=== PATIENT | female | born 1930 | race Caucasian/White ===

== ENCOUNTER 2018-05-27 11:06 | Inpatient (IN) | payer OTHER ==
[~2018-05-27] VITALS: Ht 157.5 cm; Wt 58.1 kg
[2018-05-27 11:17] VITALS: BP_SYST 166
--- NOTE | 2018-05-27 11:17 | NUR ---
Patient to ER bed 01 to gown for evaluation. Side rails up.
--- NOTE | 2018-05-27 11:20 | NUR ---
ER at bedside examining patient.
--- NOTE | 2018-05-27 11:20 | NUR ---
patient arrived AOx4 with c/o SOB since last week. 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 patients lung reza has upper respiratory wheezing bilaterally. patient is currently saturating at 92% on room air. patient denies any recent sickness. patient states she also has blood in urine with urgency and hesitation since last night. no other complaint or injury at this time.
[2018-05-27 12:30] LABS: ANION GAP 8 (5-15); CHLORIDE 102 mmol/L (98-107); CREATININE 0.99 mg/dL (0.55-1.30); GLUCOSE 95 mg/dL (70-99); POTASSIUM 3.8 mmol/L (3.5-5.1); SODIUM SERUM 138 mmol/L (136-145); UREA NITROGEN, BLOOD 28 mg/dL (8-21)
[2018-05-27 12:31] LABS: HEMOGLOBIN 17.4 g/dL (12.0-16.0); LYMPHOCYTES % (AUTO) 11.8 % (20.5-51.5); MEAN CORPUSCULAR HEMOGLOBIN 33 pg (27-31); MEAN CORPUSCULAR HGB CONC 33 % (32-36); MEAN CORPUSCULAR VOLUME 100 fL (79.0-98.0); PLATELET COUNT (AUTO) 142 K/uL (130-430); RED CELL DISTRIBUTION WIDTH 13.8 % (9.0-15.0); WHITE BLOOD COUNT (AUTO) 9.5 K/uL (4.8-10.8)
[2018-05-27 12:32] LABS: BASOPHILS % (AUTO) 0.4 % (0.0-2.0); EOSINOPHILS % (AUTO) 0.4 % (0.0-4.0); LYMPHOCYTES # (AUTO) 1.1 K/uL (1.0-5.5); MONOCYTES # (AUTO) 0.6 K/uL (0.0-1.0); MONOCYTES % (AUTO) 6.4 % (1.7-9.3); NEUTROPHILS # (AUTO) 7.7 K/uL (1.8-7.7)
[2018-05-27 12:33] LABS: INR 1.9 (0.8-1.2); PROTHROMBIN TIME 18.9 SECS (9.5-12.5)
[2018-05-27 12:36] LABS: ALANINE AMINOTRANSFERASE 45 U/L (12-78); ALBUMIN 3.8 g/dL (3.4-4.8); ASPARTATE AMINOTRANSFERASE 32 U/L (10-37)
[2018-05-27] MEDS ORDERED: TELM40TA PO (14:23)
[2018-05-27] MEDS ORDERED: CARV25TA55 PO (14:23)
[2018-05-27] MEDS ORDERED: HCT25 PO (14:23)
[2018-05-27] MEDS ORDERED: ANAS1TAB PO (14:23)
[2018-05-27] MEDS ORDERED: RIVA20TA PO (14:23)
[2018-05-27 15:02] LABS: BILIRUBIN,URINE NEGATIVE (NEGATIVE); BLOOD, URINE 3+ (NEGATIVE); CLARITY/URINE CLEAR (CLEAR); COLOR,URINE YELLOW (YELLOW); GLUCOSE,URINE NEGATIVE (NEGATIVE); KETONES,URINE NEGATIVE (NEGATIVE); LEUKOCYTE ESTERASE ,URINE 3+ (NEGATIVE); NITRITE, URINE NEGATIVE (NEGATIVE); PH,URINE 5.5 (5.0-8.0); PROTEIN URINE TRACE (NEGATIVE); UROBILINOGEN,URINE 0.2 (0.2-1.0)
[2018-05-27 15:08] LABS: BACTERIA,URINE FEW /HPF (None Seen); RBC,URINE 20-50 /HPF (0-3); WBC,URINE 20-50 /HPF (0-3)
[2018-05-27 15:09] LABS: MUCUS,URINE 1+ /LPF (None Seen)
--- NOTE | 2018-05-27 15:24 | NUR ---
ADMISSION NOTE Received patient from ER via chad, received report from ANGELIA JARRETT. Patient admitted with diagnosis of CHF. Patient oriented to hospital routine, call light, toileting and safety-patient verbalized understanding.
--- NOTE | 2018-05-27 15:30 | NUR ---
initial notes rec patient from er with a dx of chf.awake laert with hard of hearing on the right. hob slightly elevated and with ivl on the r ac intact. no infiltration noted. oriented re call light and communication board. bed to the lowest position and side rails up and locked. pt is close to the nurses station.
--- NOTE | 2018-05-27 15:35 | NUR ---
Patient will be admitted to care of MD Micaela. Admitted to Telemetry unit. Will go to room 121-b. Belongings list completed. Summary report printed. Report will be given at bedside.
[2018-05-27 15:45] VITALS: BP_SYST 155
[2018-05-27 16:00] VITALS: BP_SYST 155
[2018-05-27] MEDS ORDERED: FUROSEMIDE 20 MG/2 ML VIAL IVP ONE (16:30)
[2018-05-27] MEDS ORDERED: ALBUTEROL SULFATE 0.083% 2.5 MG/3 ML VIAL.NEB INH PRN (16:30)
--- NOTE | 2018-05-27 16:40 | NUR ---
PULMONOLOGY CONSULT PLEURAL EFFUSION DR CASTILLO [phone] DR NATH FLOW TRADER [facility]
--- NOTE | 2018-05-27 18:31 | NUR ---
closing notes pt was cleaned and kept her dry and clean. turned repositioned for comfort. stable, no chest pain noted or sob noted.
[2018-05-27] MEDS: cefTRIAXone 1 GM in D5W 50 ML IV SCH (19:00)
--- NOTE | 2018-05-27 19:02 | NUR ---
Paged Dr. Mora dialed [phone], s/w Gemma
--- NOTE | 2018-05-27 19:20 | NUR ---
Dr. Abby Mora called back and requested for an order for CT chest without contrast per family request and Dr. Burgess's recommendation.
--- NOTE | 2018-05-27 19:35 | NUR ---
Initial Note Received patient awake, alert and oriented with family at the bedside. No SOB noted. Room air. Denies any pain or n/v at this time. Saline lock flushed. Skin intact and no peripheral edema noted. Repositions herself. Made patient aware that we need another urine specimen for culture. Needs attended. Call light within reach. Care and monitoring will be provided per protocol. Bed alarm on and at lowest position at all times. Kept warm and comfortable. Controlled afib with paced beats on a monitor.
[2018-05-27] MEDS: ALBUTEROL SULFATE 0.083% 2.5 MG/3 ML VIAL.NEB INH SCH ×2 (19:51→23:20)
[2018-05-27 20:00] VITALS: BP_SYST 159
[2018-05-27] MEDS: CARVEDILOL 25 MG TABLET (COREG) PO SCH (20:45)
--- NOTE | 2018-05-27 20:45 | NUR ---
RN Note Due meds given, tolerated well. Hearing aid x1 placed on a denture cup with patient's name. Bedpan given as requested. Kept clean and dry.
[2018-05-27] MEDS: RIVAROXABAN 20 MG TABLET PO SCH (20:52)
[2018-05-27] MEDS ORDERED: RIVAROXABAN 10 MG TABLET ONE (20:57)
--- NOTE | 2018-05-27 23:30 | NUR ---
RN Note On HHN. Given bedpan as requested. Repositions herself. Kept clean, dry and comfortable. No other complaints.
--- NOTE | 2018-05-27 23:48 | NUR ---
Consultation Paged Reason for Consultation: Congestive Heart Failure Was consult called: Y Person who was notified: Truck Body Repairer 22 Consulting Physician: Francois Romano Hot Dip Galvanizer Ordering Physician: Dr. Hniojosa
[2018-05-28] VITALS (7 sets, daily range): BP systolic 148–179
--- NOTE | 2018-05-28 01:00 | NUR ---
RN Note Sleeping at this time. No SOB or grimacing noted.
--- NOTE | 2018-05-28 02:00 | NUR ---
RN Note Awake, given bedpan and extra blanket as requested. Kept clean and dry. No complaints at this time.
[2018-05-28] MEDS: ALBUTEROL SULFATE 0.083% 2.5 MG/3 ML VIAL.NEB INH SCH ×6 (03:00→22:29)
--- NOTE | 2018-05-28 04:00 | NUR ---
RN Note Asleep, moves/turn by herself. No distress noted.
--- NOTE | 2018-05-28 06:28 | NUR ---
End Note Afebrile. VS stable. Last BP was 157/68, HR was 85. Denies any pain or n/v throughout the night. Coughs occasionally. Room air. No BM with me. Uses bedpan and has good urine output. Refused IV antibiotic last night. For 2D Echo, CXR, CT Chest and labs today. Needs attended. Call light within reach. Care and monitoring provided per protocol. Repositions herself. Kept warm and comfortable. A fib paced on monitor.
--- NOTE | 2018-05-28 06:46 | NUR ---
Nutrition Update Steve Scale 18 noted. Pt admitted for CHF Diet: 2gm Na diet BMI: 23.5 kg/m2 RD to follow per nutrition care standards.
[2018-05-28 07:21] LABS: HEMATOCRIT 48.8 % (36-48); HEMOGLOBIN 16.4 g/dL (12.0-16.0); MEAN CORPUSCULAR HEMOGLOBIN 34 pg (27-31); MEAN CORPUSCULAR HGB CONC 34 % (32-36); MEAN CORPUSCULAR VOLUME 100 fL (79.0-98.0); PLATELET COUNT (AUTO) 125 K/uL (130-430); RED BLOOD CELL COUNT(AUTO) 4.89 MIL/uL (4.2-6.2); RED CELL DISTRIBUTION WIDTH 13.8 % (9.0-15.0); WHITE BLOOD COUNT (AUTO) 8.4 K/uL (4.8-10.8)
[2018-05-28 07:41] LABS: BASOPHILS % (AUTO) 0.6 % (0.0-2.0); EOSINOPHILS # (AUTO) 0.1 K/uL (0.0-0.4); EOSINOPHILS % (AUTO) 1.5 % (0.0-4.0); LYMPHOCYTES # (AUTO) 1.7 K/uL (1.0-5.5); LYMPHOCYTES % (AUTO) 20.1 % (20.5-51.5); MONOCYTES # (AUTO) 0.8 K/uL (0.0-1.0); NEUTROPHILS # (AUTO) 5.8 K/uL (1.8-7.7); NEUTROPHILS % (AUTO) 68.8 % (40.0-70.0)
--- NOTE | 2018-05-28 08:00 | NUR ---
Note Pt sitting up in bed eating her breakfast. No SOB/resp distress or pain/discomfort was noted at this. Tele unit intact and attached at this time. IV in right AC intact and patent at this time. No needs noted. Call light within reach.
[2018-05-28 08:02] LABS: ANION GAP 12 (5-15); CALCIUM 8.5 mg/dL (8.4-11.0); CHLORIDE 102 mmol/L (98-107); CREATININE 0.99 mg/dL (0.55-1.30); GLUCOSE 99 mg/dL (70-99); POTASSIUM 3.1 mmol/L (3.5-5.1); SODIUM SERUM 139 mmol/L (136-145); UREA NITROGEN, BLOOD 27 mg/dL (8-21)
[2018-05-28] MEDS: LOSARTAN POTASSIUM 50 MG TABLET (COZAAR) PO SCH (08:13)
[2018-05-28] MEDS: CARVEDILOL 25 MG TABLET (COREG) PO SCH ×2 (08:13→20:52)
[2018-05-28] MEDS: FUROSEMIDE 20 MG/2 ML VIAL IVP SCH ×2 (08:14→20:53)
[2018-05-28] MEDS ORDERED: TELMISARTAN 40 MG PO SCH (09:00)
--- NOTE | 2018-05-28 10:00 | NUR ---
Note Dr Hinojosa at bedside doing assessment and answering questions/concerns at this time. Pt's son at bedside visiting at this time as well. Call light within reach.
[2018-05-28] MEDS ORDERED: POTASSIUM CHLORIDE 20 MEQ TAB.PRT.SR PO ONE (13:00)
--- NOTE | 2018-05-28 13:00 | NUR ---
Note Dr Lara and CLINICAL RADIOLOGIST at bedside assessing pt cardiac-[place] and answering questions/concerns at this time. Pt stable and has been assisted to restroom many times. Pt's daughter at bedside at this time visiting and assisting pt in her needs and care. Call light within reach.
--- NOTE | 2018-05-28 16:00 | NUR ---
Note Pt resting in bed. No needs noted at this time. Call light within reach.
[2018-05-28] MEDS: cefTRIAXone 1 GM in D5W 50 ML IV SCH (17:51)
[2018-05-28] MEDS: RIVAROXABAN 20 MG TABLET PO SCH (17:52)
--- NOTE | 2018-05-28 18:30 | NUR ---
Note Pt sitting up in bed eating her dinner. No SOB/resp distress or pain/discomfort noted at this time. Pt was checked on q1 and PRN all shift for needs and care. IV in right hand intact and patent. Pt's tele unit intact and attached at this time. No needs noted. Call light within reach.
--- NOTE | 2018-05-28 19:00 | NUR ---
change of shift.pt.presents stable status.pt.presents general status stable.respiratory status stable.@room air. pt.presents iv access;lock.call light/telephone w/in th reach of the pt.
--- NOTE | 2018-05-28 20:00 | NUR ---
pt.assessed.v/s assessed;values w/in normal limits.pt.presents sign alert;do not utilizes left arm;b/p;labs.pt.presents hx breast cancer. i have apprised the pt.that snacks/beverages are available w/in the shift;no requested@this hour.i have assisted the pt.to the restroom.i have assisted the pt's return to bed.;ambar has transferred the pt.to rm;113.via wheel chair.pt's belongings accounted for;hearing aidx1,glasses.call light/telephone placed w/inn the reach of the pt.
--- NOTE | 2018-05-28 20:30 | NUR ---
i have assisted the pt.to the restroom.i have assisted the pt's return to bed.no additional; requests@this hour.
--- NOTE | 2018-05-28 21:00 | NUR ---
2100p medications administered.i have reiterated to the pt,.that i am to administered lasix.diuretic;20mg ivp. the medication will induce urination process.pt.has understood.that he will present the need to mictrate.
--- NOTE | 2018-05-28 22:00 | NUR ---
pt.assessed.pt.presents quiescent affect;calm,somnolent,.general status stable.respiratory status stable. call light/telephone w/in the reach of the pt.
--- NOTE | 2018-05-29 | NUR ---
pt.assessed.v/s assessed;values w/in normal limits.pt.presents no c/o pain,nausea.no requests presented @this hour.pt.capable to reposition self.general status stable.respiratory status stable;unlabored.02-sat%=94%@room air.call light/telephone w/in the reach of the pt.
[2018-05-29 00:13] VITALS: BP_SYST 145
--- NOTE | 2018-05-29 02:00 | NUR ---
pt.assessed.pt.presents quiescent affect;calm,somnolent.pt.capable to reposition self.no requests@this hour. general status stable.respiratory status stable.unlabored.call light/telephone w/in the reach of the pt.
[2018-05-29] MEDS: ALBUTEROL SULFATE 0.083% 2.5 MG/3 ML VIAL.NEB INH SCH ×3 (03:00→11:05)
--- NOTE | 2018-05-29 03:30 | NUR ---
i have assisted the pt.to the restroom .i have assisted the pt's return to bed. pt.capable to reposition self.call light/telephone placed w/in the reach of the pt.
--- NOTE | 2018-05-29 04:00 | NUR ---
pt.assessed.pt.presents quiescent affect;calm,somnolent.pt.presents no requests@this hour.no c/o pain,nausea. general status stable.respiratory status stable;unlabored.pt.capable to reposition self.call light/telephone w/in the reach of the pt.
--- NOTE | 2018-05-29 06:00 | NUR ---
pt.assessed.pt.presents quiescent affect;calm,somnolent.no c/o pain,nausea.pt.capable to reposition self. general status stable.respiratory status stable;unlabored.call light/telephone w/in the reach of the pt.
[2018-05-29 07:17] LABS: ANION GAP 9 (5-15); CALCIUM 8.3 mg/dL (8.4-11.0); CHLORIDE 102 mmol/L (98-107); CREATININE 1.17 mg/dL (0.55-1.30); GLUCOSE 93 mg/dL (70-99); POTASSIUM 3.8 mmol/L (3.5-5.1); SODIUM SERUM 140 mmol/L (136-145); UREA NITROGEN, BLOOD 27 mg/dL (8-21)
--- NOTE | 2018-05-29 07:40 | NUR ---
opening note pt is awake in bed, no distress noted, iv saline locked, pt reoriented to call light use, visibly within reach, bed alarm in place with bed in the lowest position
[2018-05-29 08:00] VITALS: BP_SYST 165
[2018-05-29] MEDS: FUROSEMIDE 20 MG/2 ML VIAL IVP SCH (08:49)
[2018-05-29] MEDS: CARVEDILOL 25 MG TABLET (COREG) PO SCH (08:50)
[2018-05-29] MEDS: LOSARTAN POTASSIUM 50 MG TABLET (COZAAR) PO SCH (08:50)
--- NOTE | 2018-05-29 09:21 | NUR ---
IV RE-INSERTION: Complaining of pain to IV site. Restarted on right forearm 22 g. Successful after 1 attempts. pt is saline locked, Will observe for any signs of infiltration.
--- NOTE | 2018-05-29 09:23 | NUR ---
morning meds give, pt tolerated well, no distress noted. safety maintained
[2018-05-29 11:44] VITALS: BP_SYST 152
--- NOTE | 2018-05-29 11:50 | NUR ---
PCP APPOINTMENT WITHIN 7 DAYS POST DISCHARGE/ CHF PROTOCOL SPOKE TO [facility], OFFICE OF DR BRET JONES, APPOINTMENT MADE TO SEE DR BRET JONES ON FRIDAY, JUNE 02 AT 3:15 pm. PATIENT MADE AWARE.
[2018-05-29 12:02] VITALS: BP_SYST 152
[2018-05-29] MEDS ORDERED: FURO-149 PO (12:38)
[2018-05-29] MEDS ORDERED: CEPH-568 PO (12:39)
--- NOTE | 2018-05-29 15:00 | NUR ---
D/C Patient Patient given medication reconciliation form and D/C instructions. Exit Care provided. Patient verbalized understanding. MD discussed with patient the results and treatment provided. Ambulatory with steady gait for discharge to home taken via wheelchair. Patient in stable condition, ID band removed. IV catheter removed, intact and dressing applied, no active bleeding. Rx of lasix and keflex given. Patient educated on pain management. All belongings sent with patient.
--- NOTE | 2018-06-02 11:59 | NUR ---
DISCHARGE FOLLOW UP PHONE CALL: BLOOD DONOR RECRUITER phoned pt @ [phone] and spoke with pt. Per pt, she is doing well but "a little sluggish". Pt was able to fill her discharge medication and no questions regarding her meds. Pt has an appointment with Dr. Oakley today @ 0700 and pt's daughter will be driving her to MD appointment. BLOOD DONOR RECRUITER offered pt for a brim molder follow up phone call, but pt refused. No further phone call needed at the time.
== END 2018-05-29 15:00 | disposition home or self-care (01) | DRG 292 ==
LOC: SED 11:06 → STU 14:35
PROVIDERS: ADMIT Internal Medicine Hospice and Palliative Medicine; ATTEND Internal Medicine Hospice and Palliative Medicine
DX: I11.0 Hypertensive heart disease with heart failure (principal); N39.0 Urinary tract infection, site not specified; I50.23 Acute on chronic systolic (congestive) heart failure; I25.10 Atherosclerotic heart disease of native coronary artery without angina pectoris; R09.02 Hypoxemia; I48.0 Paroxysmal atrial fibrillation; E87.6 Hypokalemia; Z96.643 Presence of artificial hip joint, bilateral; Z85.3 Personal history of malignant neoplasm of breast; Z88.0 Allergy status to penicillin; Z92.3 Personal history of irradiation; Z95.0 Presence of cardiac pacemaker; Z82.49 Family history of ischemic heart disease and other diseases of the circulatory system
CPT/HCPCS: 36415; 36600; 71045; 71250-TC; 80048; 80053; 81000-TC; 82550-TC; 82803-TC; 83880; 84484; 85025; 85610-TC; 85730-TC; 87086; 87186-TC; 93005; 93306; 94640; 94760; 99285; G0378; J0696; J1940; J7060; J7613